=== PATIENT | male | born 1965 | race Caucasian/White ===

== ENCOUNTER 2017-12-27 09:01 | Outpatient (CLI) | payer OTHER ==
--- NOTE | 2017-12-27 11:16 | MRI ---
MRI CERVICAL SPINE WITHOUT CONTRAST: 12/27/2017 HISTORY: Neck pain radiating down left shoulder and arm with numbness for six weeks, numbness of the right fin gers, and cervical radiculopathy. COMPARISON: None. TECHNIQUE: Multiplanar, multisequence MR imaging of the cervical spine is provided without contrast. FINDINGS: The sagittal STIR imaging demonstrates no focal area of osseous marrow edema. There is straightening of the normal cervical lordosis. No prevertebral soft tissue abnormality. The clivus is somewhat h orizontally oriented with a degree of osseous fusion at the level of the C1 ring and occipital condyl es bilaterally. C2-C3: Mild disk space narrowing. Mild right-sided facet and uncovertebral osteophyte formation wit h no significant central canal or neural foraminal stenosis. C3-C4: Disk desiccation and mild disk space narrowing. No significant central canal or neural yady inal stenosis. C4-C5: Disk space narrowing, disk desiccation, and mild disk bulge, with partial effacement of the v entral thecal sac and mild central canal stenosis. Small superimposed left paracentral disk protrusi on. No significant neural foraminal stenosis. C5-C6: Disk space narrowing and disk desiccation. Small right paracentral disk protrusion with part ial effacement of the ventral thecal sac and mild central canal stenosis. Facet and uncovertebral osteophyte formation leads to moderate right neural foraminal stenosis. No s ignificant left neural foraminal stenosis. C6-C7: Disk space narrowing, disk desiccation, degenerative endplate change, anterior osteophyte for mation, and posterior disk osteophyte complex with small superimposed right paracentral disk protrusi on, leading to partial effacement of the ventral thecal sac and mild central canal stenosis. No neur al foraminal stenosis on either side. C7-T1: Disk space narrowing, disk desiccation, and disk bulge. Prominent disk herniation in the lef t paracentral/left foraminal region, causes severe left lateral recess stenosis/left neural foraminal stenosis. No significant right neural foraminal stenosis. No focal area of abnormal signal intensity is identified within the cervical cord. IMPRESSION: Multilevel degenerative change noted within the cervical spine. The most significant finding is a pr ominent disk herniation in the left paracentral/left foraminal region, C7-T1 level, with prominent le ft lateral recess/neural foraminal stenosis. POS: ONUR
== END 2017-12-27 09:02 | disposition home or self-care (01) ==
LOC: SCSMRI 09:01
PROVIDERS: ATTEND Neurological Surgery
DX: M47.22 Other spondylosis with radiculopathy, cervical region (principal); M99.81 Other biomechanical lesions of cervical region; M99.82 Other biomechanical lesions of thoracic region
CPT/HCPCS: 72141

== ENCOUNTER 2018-03-28 05:31 | Day surgery (SDC) | payer OTHER ==
[2018-03-22 16:29] VITALS: BMI 32.3
[2018-03-28] MEDS ORDERED: Fentanyl 100 MCG/2 ML VIAL ONE ×2 (06:06→08:32)
--- NOTE | 2018-03-28 06:09 | HP ---
HISTORY OF PRESENT ILLNESS: Mr. Santos is a pleasant 52-year-old man who presents today for evaluatio n of 2 weeks' worth of left upper extremity C7 pains and numbness that came on without notable inciti ng event. He has a recent MRI that reveals a left-sided C6-C7 disk herniation causing notable compre ssion of the exiting C8 nerve root, which would certainly account for his symptoms. He began to expe rience continued progressive weakness and as such will likely need surgical decompression. PAST MEDICAL HISTORY: Hyperlipidemia. PAST SURGICAL HISTORY: Lithotripsy, knee surgery. CURRENT MEDICATIONS: Fenofibrate. ALLERGIES: No known drug allergies. PHYSICAL EXAMINATION: The patient is alert and oriented x3. There is left-sided intrinsic hand weak ness, as well as numbness over the C8 distribution in the left upper extremity. Right upper extremit y motor exam is normal. ASSESSMENT: Cervical disk herniation with radiculopathy and arm weakness. PLAN: Dr. Mejia met with the patient, reviewed imaging, and advocated for a left C7-T1 diskectomy. He explained to the patient the risks, benefits, and alternatives of the procedure. The patient expr essed understanding and would like to move forward with surgery as discussed. I do believe the patie nt is mentally competent and capable of making medical decisions for himself. We will move forward w the [facility] surgery as planned. Alex Paul PA-C dictating for Dr. Mejia.
[2018-03-28] MEDS ORDERED: Thrombin 5000 UNITS/5 ML VIAL ONE (06:16)
[2018-03-28] MEDS ORDERED: Bupivacaine HCl 0.5%/Epinephrine 1:200,000/PF 30 ml Vial ONE (06:16)
[2018-03-28] MEDS ORDERED: CEFAZOLIN/Water 2 GM/20 ML SYRINGE ONE ×2 (06:17→10:02)
[2018-03-28] MEDS ORDERED: Ketorolac Tromethamine 30 MG/ML VIAL ONE (10:06)
[2018-03-28] MEDS ORDERED: Glycopyrrolate 0.2 MG/ML 5 ML SYRINGE ONE (10:06)
[2018-03-28] MEDS ORDERED: Dexamethasone 20 MG/5 ML VIAL ONE (10:06)
[2018-03-28] MEDS ORDERED: Lidocaine 1% PF 5 ML VIAL ONE (10:06)
[2018-03-28] MEDS ORDERED: PHENYLEPHRINE-NS 100 MCG/ML 10 ML SYRINGE ONE (10:06)
[2018-03-28] MEDS ORDERED: PROPOFOL 200 MG/20 ML VIAL ONE (10:06)
[2018-03-28] MEDS ORDERED: Ondansetron HCl/PF 4 MG/2 ML Vial ONE (10:06)
--- NOTE | 2018-03-28 10:32 | OP ---
DATE OF PROCEDURE: 03/28/2018 SURGEON: Carrillo Mejia M.D. BABY ATTENDANT: Alex Paul PA-C. INDICATION: Left arm and hand pain. DIAGNOSIS: Left C8 radiculopathy. PROCEDURE: Left C7-T1 hemilaminectomy, discectomy. ANESTHESIA: General. TECHNIQUE: The patient was brought into the operating room and placed under general anesthesia. He was flipped from supine to prone position on the operating room table. A linear incision was planned over the C7-T1 segment. After prepping and draping and after an appropriate operative pause, the in cision was created. The soft tissues were swept left of midline. A self-retaining retractor was nita taj in the wound for optimal exposure. After confirming the appropriate level with C-arm fluoroscopy , a high-speed cutting drill bit as well as a 2 mm Kerrison was used to perform hemilaminectomy along the inferior aspect of C7 and superior aspect of T1. The C7 disk was identified and an annulotomy w as performed in the disk and disk material was removed until the lateral recess and exiting nerve ashia t were decompressed at that level. The wound was irrigated. Hemostasis was maintained throughout. The wound was then closed in anatomic layers and a pressure dressing was applied. There were no know n procedural complications.
== END 2018-03-28 11:24 | disposition home or self-care (01) ==
LOC: SDC 05:31
PROVIDERS: ATTEND Neurological Surgery
PROC: 01N10ZZ Release Cervical Nerve, Open Approach (ICD-10-PCS; principal; 2018-03-28)
DX: M50.123 Cervical disc disorder at C6-C7 level with radiculopathy (principal); E78.5 Hyperlipidemia, unspecified
CPT/HCPCS: 76001; 96374; 96375; J0670; J1100; J1885; J2001; J2405; J2704; J3010